=== PATIENT | female | born 1980 | race Caucasian/White ===

== ENCOUNTER 2024-01-29 15:46 | Emergency (ER) | payer OTHER, SELFPAY ==
[2024-01-29 15:59] VITALS: BP 149/97
[2024-01-29 16:37] VITALS: BMI 22.7
--- NOTE | 2024-01-29 16:40 | ED.GENMED ---
History of Present Illness
General
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
Source: patient
Exam Limitations: none
Time Seen by Provider: 01/29/24 16:39
Nursing documentation reviewed up to this point in time: agreed with
Travel History
Have you had any contact with someone who has COVID-19?: No
Do you have any symptoms of coronavirus? Fever > 100 degrees, chills, cough, shortness of breath, sore throat, loss of taste or smell, muscle aches, or headache?: No
History of Present Illness
History of Present Illness:
Patient is a 43-year-old female presenting for evaluation of heavy vaginal bleeding. Patient states that her menstrual cycle started approximately 6 days ago and was initially drosser than usual until this morning when the bleeding intensified.
She reports bright red blood and passing large clots. She reports going through about 1 super tampon and pad per hour. Patient also endorses significant pelvic cramping intermittent throughout the day. Denies any associated nausea, vomiting,
anorexia. Patient denies any dizziness, lightheadedness, fatigue, headache, shortness of breath.
Of note�patient does have a history of ovarian cysts and uterine fibroids. Patient was found to be severely anemic with a hemoglobin of around 7 this past summer, given iron infusion with prompt resolution. Patient had a Liletta IUD placed this
past fall to help control menstrual bleeding. She was seen by her EMERGENCY CARE TECH approximately 1.5 months ago for a IUD string check it was found to be in place.
Phy Exam
Physical Exam
Physical Exam:
Vitals: Patient's vital signs are stable
General: Patient is very well appearing, no acute distress
Skin: Warm and dry, no rashes or lesions
Head: Normocephalic, atraumatic
Eyes: Sclera nonicteric. EOMs intact. No nystagmus. Moist mucous membranes
Throat: Protecting airway
Neck: Normal ROM, no cervical spine tenderness, no meningismus
Cardiac: Regular rate and rhythm, no murmurs.
Pulm: Normal respiratory effort, no wheezes, rales, rhonchi heard on exam.
Abdomen: Abdomen soft with minimal tenderness in right lower quadrant and suprapubic region without rebound or guarding.
Pelvic: Bright red blood in vaginal vault without any visible clots, no visualized vaginal wall lacerations
Extremities: No evidence of cyanosis or edema. DP pulses palpable and equal bilaterally
Neuro: AAOx3. CN II-XII intact. No focal neurologic deficits.
Psychiatric: Normal affect.
Course
Orders/Labs/Results
Orders:
Orders
01/29/24 16:37
Type+Screen Urgent
Complete Blood Count/With Diff Urgent
Comprehensive Metabolic Panel Urgent
HCG, Serum Qualitative Screen Urgent
Comment: SERUM HCG QUALITATIVE ADDED ON BY FLOOR 4:50PM 01-29-24
01/29/24 16:41
Test Result ONCE
01/29/24 16:51
Add On- LAB Urgent
Tests Added?: Serum Hcg Qualitative
01/29/24 17:46
US Pelvis W Transvag Combined Urgent
Comment: has Liletta IUD
Reason For Exam: heavy bleeding, right pelvic pain, r/o torsion
Abnormal Lab Results
01/29/24
16:37
MCH 31.4 H pg
(27.0-31.0)
Absolute Lymphs (auto) 1.0 L 10^3/uL
(1.2-3.4)
Lymphocytes % 18.3 L %
(20.5-51.1)
BUN 19 H mg/dl
(7-17)
01/29/24 16:37
01/29/24 16:37
Vital Signs
Initial and Last Documented VS:
Initial Vital Signs
Temp Pulse Resp BP Pulse Ox
98.3 F 78 16 149/97 98
01/29/24 15:59 01/29/24 15:59 01/29/24 15:59 01/29/24 15:59 01/29/24 15:59
Last Documented Vital Signs
Temp Pulse Resp BP Pulse Ox
98.3 F 68 15 125/79 98
01/29/24 15:59 01/29/24 21:00 01/29/24 21:00 01/29/24 20:28 01/29/24 21:00
MDM/Problems Addressed
Differential Diagnosis Includes:
Not limited to: Menstrual bleeding, uterine fibroids, ovarian cyst, spontaneous , ectopic
MDM/Problems Addressed:
Patient is a 43 year old female with history uterine fibroids presenting with one day of heavy menstrual period with intermittent pelvic pain. Vitals stable. Exam as above. Will check labs, , pelvic US given pelvic discomfort. Patient
denies analgesia at this time.
Labs noted. Hgb stable at 13.3. negative. US pending. Anticipate discharge.
US shows uterine fibroids which are known to patient without any evidence of ovarian torsion. Suspect fibroids to likely be cause of increased menstrual bleeding. Repeat vitals have remained stable. Patient appears in no distress - fit for
discharge. She will f/u with OBGYN early next week. Return precautions discussed at length.
Chronic conditions affecting care:
N/A
Acute Exacerbation and/or Progression of Chronic Illness:
N/A
*Radiology
Radiology exam reviewed: radiology read reviewed
*Pulse Oximetry
Patient hypoxic: no
*EKG
Interpreted by ED Provider?: NA
*Grain Trader Interpretation
Rate: normal
Interpretation: normal
Heart Rate: 76
Rhythm: sinus
*Critical Care Note
Total Time (30-74mins, 75-104mins- exclusive of procedures): Not Applicable
ED Attending Note
-
Portions of this chart may have been created with voice recognition software.� Occasional wrong word or��sound alike� substitutions may have occurred due to the inherent limitations of voice recognition software.
Discharge Plan
Departure
Patient Disposition: Home (Routine Discharge)
Date of Disposition: 01/29/24
Time of Disposition: 21:48
Patient with high blood pressure during this ER visit?: No
Condition: Good
Covid-19: Not Applicable
Discharge Problem:
Vaginal bleeding
Instructions: Heavy Periods (DC), Heavy Periods ED
Prescriptions:
No Action
venlafaxine [Effexor] 100 mg Tablet
112.5 mg PO DAILY
Referrals:
Gabbi Tijerina MD [Active] - Next open appointment
Hema Shah MD [Family Provider] -
Activity Restrictions/Additional Instructions:
-Return to the emergency department with any chest pain, shortness of breath, dizziness/lightheadedness, fainting, severe fatigue, persistent heavy bleeding, severe abdominal pain, nausea/vomiting, worsening in current symptoms, or any other concerns
-You can take Motrin as needed for discomfort. It is important to stay well hydrated.
-As discussed - you should follow-up with your OBGYN early next week for further evaluation/management.
Interventions
Interventions:
*Risk Screen - Suicide Last Done: 01/29/24 16:37
*General Assessment Last Done: 01/29/24 16:37
*Neglect/Abuse Screening Last Done: 01/29/24 16:37
ED- Fall Risk Assessment Last Done: 01/29/24 16:37
*ED COVID-19 Vaccine History Last Done: 01/29/24 16:37
*Nursing Disposition Last Done: 01/29/24 21:53
ED-Female Genitourinary Assessment Last Done: 01/29/24 16:37
Discharge Date and Time
Discharge Date/Time: 01/29/24 21:54
Print Language: MICRONESIAN
[2024-01-29 17:02] LABS: % Basophils 1.1 % (0-2); % Eosinophils 2.3 % (0-6); % Immature Granulocytes 0.2 % (0-0.5); % Lymphocytes 18.3 % (20.5-51.1); % Monocytes 6.8 % (1.7-9.3); % Neutrophils 71.3 % (42.2-75.2); Absolute Basophils 0.1 10^3/uL (0-0.2); Absolute Eosinophils 0.1 10^3/uL (0-0.7); Absolute Monocytes 0.4 10^3/uL (0.1-0.6); Hematocrit 39.3 % (37.0-47.0); Hemoglobin 13.3 g/dL (12.0-16.0); Mean Corp Hgb Conc. 33.8 g/dL (33.0-37.0); Mean Corpuscular Hgb 31.4 pg (27.0-31.0); Mean Corpuscular Volume 92.9 fL (81.0-99.0); Mean Platelet Volume 9.9 fL (7.4-10.4); Nucleated Red Blood Cells % 0 %; Platelet Count 223 10^3/uL (130-400); Red Blood Cell Count 4.23 10^6/uL (4.20-5.40); Red Cell Dist. Width 12.3 % (11.5-14.5); White Blood Cell Count 5.6 10^3/uL (4.8-10.8)
[2024-01-29 17:20] LABS: ALT (SGPT) 14 U/L (0-35); AST (SGOT) 21 U/L (14-36); Albumin 4.4 g/dl (3.5-5.0); Alkaline Phosphatase 69 U/L (38-126); Blood Urea Nitrogen 19 mg/dl (7-17); Carbon Dioxide 26 mmol/L (22-30); Chloride 104 mmol/L (98-107); Estimated Creatinine Clearance 66 ml/min; Glucose 83 mg/dl (70-99); Potassium 4.3 mmol/L (3.5-5.1); Sodium 136 mmol/L (135-145); Total Bilirubin 0.4 mg/dl (0.2-1.3); Total Protein 6.7 g/dl (6.3-8.2); eGFR > 60.00
[2024-01-29 17:29] LABS: HCG, Serum Qualitative Screen Negative
[2024-01-29 18:39] VITALS: BP 138/94
[2024-01-29 20:28] VITALS: BP 125/79
--- NOTE | 2024-01-29 21:29 | EDRN ---
Pt's mother came to the charge desk wanting to know the results of her daughters ultrasound and when she would be discharged. Pt's mother informed that this RN would speak with provider in regards to results.Pt and Pt's mother informed that provider
will be in soon to discuss results. Pt's mother stated she was told for discharge and that she is tired of waiting, this RN said that she is currently noted marked for D/C but she could ask the provider when she comes in. Pt then waved this RN out
of room and stated she is annoyed at the wait for results and discharge.
== END 2024-01-29 21:54 | disposition home or self-care (01) ==
LOC: EMR 15:46
PROVIDERS: EMERGENCY PHYSICIAN Emergency Medicine; FAMILY PHYSICIAN Internal Medicine Geriatric Medicine
DX: N93.9 Abnormal uterine and vaginal bleeding, unspecified (principal); R10.2 Pelvic and perineal pain; N83.209 Unspecified ovarian cyst, unspecified side; D25.9 Leiomyoma of uterus, unspecified; J45.909 Unspecified asthma, uncomplicated; M41.9 Scoliosis, unspecified; Z97.5 Presence of (intrauterine) contraceptive device; Z86.16 Personal history of COVID-19; Z91.013 Allergy to seafood; Z88.2 Allergy status to sulfonamides; Z91.018 Allergy to other foods
CPT/HCPCS: 99284; 76830; 76856; 80053; 84703; 85025; 86850; 86900; 86901

== ENCOUNTER → 2024-03-17 13:59 | Outpatient (REF) | payer OTHER, SELFPAY ==
[2024-03-17 14:06] LABS: % Basophils 0.7 % (0-2); % Eosinophils 1.6 % (0-6); % Immature Granulocytes 0.2 % (0-0.5); % Lymphocytes 15.2 % (20.5-51.1); % Monocytes 7.6 % (1.7-9.3); % Neutrophils 74.7 % (42.2-75.2); Absolute Eosinophils 0.1 10^3/uL (0-0.7); Absolute Lymphocytes 0.9 10^3/uL (1.2-3.4); Absolute Monocytes 0.4 10^3/uL (0.1-0.6); Absolute Neutrophils 4.2 10^3/uL (1.4-6.5); Hematocrit 30.4 % (37.0-47.0); Hemoglobin 9.6 g/dL (12.0-16.0); Mean Corp Hgb Conc. 31.6 g/dL (33.0-37.0); Mean Corpuscular Hgb 26.6 pg (27.0-31.0); Mean Corpuscular Volume 84.2 fL (81.0-99.0); Mean Platelet Volume 9.5 fL (7.4-10.4); Platelet Count 325 10^3/uL (130-400); Red Blood Cell Count 3.61 10^6/uL (4.20-5.40); Red Cell Dist. Width 18.3 % (11.5-14.5); White Blood Cell Count 5.7 10^3/uL (4.8-10.8)
== END ==
LOC: OIDL 13:59
PROVIDERS: ATTENDING PHYSICIAN Registered Nurse
DX: D50.9 Iron deficiency anemia, unspecified (principal)
CPT/HCPCS: 85025

== ENCOUNTER → 2024-04-01 13:08 | Outpatient (REF) | payer OTHER, SELFPAY | LOC: WDC 13:08 | PROVIDERS: ATTENDING PHYSICIAN Nurse Practitioner Family | DX: Z12.31 Encounter for screening mammogram for malignant neoplasm of breast (principal) | CPT/HCPCS: 77063; 77067 ==

== ENCOUNTER → 2024-04-05 08:02 | Outpatient (REF) | payer OTHER, SELFPAY | LOC: RSP 08:02 | PROVIDERS: ATTENDING PHYSICIAN Nurse Practitioner Family; REFERRING PHYSICIAN Obstetrics & Gynecology | DX: J45.901 Unspecified asthma with (acute) exacerbation (principal) | CPT/HCPCS: 94727; 94729; 88738; 94060 ==

== ENCOUNTER 2024-04-08 06:26 | Day surgery (SDC) | payer OTHER, SELFPAY ==
[2024-03-29 08:17] VITALS: BMI 22.2
[2024-03-29 09:52] LABS: % Basophils 1.1 % (0-2); % Eosinophils 3.2 % (0-6); % Immature Granulocytes 0.2 % (0-0.5); % Lymphocytes 18.6 % (20.5-51.1); % Monocytes 7.9 % (1.7-9.3); Absolute Basophils 0.1 10^3/uL (0-0.2); Absolute Eosinophils 0.2 10^3/uL (0-0.7); Absolute Monocytes 0.4 10^3/uL (0.1-0.6); Absolute Neutrophils 3.7 10^3/uL (1.4-6.5); Hemoglobin 11.7 g/dL (12.0-16.0); Mean Corp Hgb Conc. 32.5 g/dL (33.0-37.0); Mean Corpuscular Hgb 27.9 pg (27.0-31.0); Mean Corpuscular Volume 85.7 fL (81.0-99.0); Mean Platelet Volume 10.1 fL (7.4-10.4); Nucleated Red Blood Cells % 0 %; Platelet Count 314 10^3/uL (130-400); Red Cell Dist. Width 22.1 % (11.5-14.5); White Blood Cell Count 5.3 10^3/uL (4.8-10.8)
[2024-03-29 10:21] LABS: Blood Urea Nitrogen 12 mg/dl (7-17); Calcium 9.1 mg/dl (8.4-10.2); Carbon Dioxide 23 mmol/L (22-30); Chloride 107 mmol/L (98-107); Estimated Creatinine Clearance 87 ml/min; Glucose 78 mg/dl (70-99); Potassium 4.2 mmol/L (3.5-5.1); Sodium 138 mmol/L (135-145); eGFR > 60.00
[2024-03-29 10:26] LABS: Beta HCG Quantitative < 2.39 mIU/ml
[2024-03-29 11:10] LABS: Anisocytosis 1+; Normal RBC Morphology No
[2024-03-29 11:11] LABS: Hypochromasia 1+; Ovalocytes Slight
[2024-04-08] VITALS (13 sets, daily range): BP systolic 119–146; BP diastolic 70–98; BMI 22.2; BMI 23.5
[2024-04-08] MEDS: TYLENOL 1000 MG PO (10:17)
[2024-04-08] MEDS: NORMOSOL-R 1000 IV ×2 (10:17→20:15)
--- NOTE | 2024-04-08 10:31 | W.SUR.PREOP ---
Pre-Operative Surgical Note
-
I have examined this patient prior to the performance of the scheduled procedure.
The patient's condition is unchanged from the time of the current History and
Physical and the patient is able to undergo the scheduled procedure.
No changes in H&P update today
--- NOTE | 2024-04-08 13:47 | W.IMMPOSTOP ---
Surgical Immed Post Op Note
-
Primary Surgeon: Bella Cruz DO
Photographer Apprentice Lithographic: NABEEL Beard
Pre-op Diagnosis: Menorrhagia, anemia, fibroid uterus
Post-op Diagnosis: same; endometriosis
Procedure Performed: RA TLH bilateral salpingectomy, fulgeration endometriosis
Anesthesia Type: general ET Dr. Sanon
Specimen / Cultures: uterus, cervix and fallopian tubes
Estimated Blood Loss: 10ml
IVF: 1200ml crystalloid
Urine output: 600ml clear yellow urine
Complications: none
Operative Findings: Enlarged fibroid uterus, sounded to 11 cm. Large right sided fibroid approx 5-6 cm bulging anteriorly and laterally.
Normal appearing tubes and left ovary. Right ovary with superficial 3mm endometriosis implant on surface and small 3mm endometriosis implant on left uterosacral ligament.
Counts correct times 2.
Stable to recovery.
[2024-04-08] MEDS: ZOFRAN 4 MG IV (15:22)
[2024-04-08] MEDS: COMPAZINE 5 MG IV (15:29)
[2024-04-08] MEDS: ROXICODONE 5 MG PO ×2 (17:13→23:27)
[2024-04-08] MEDS: TYLENOL 650 MG PO (18:26)
--- NOTE | 2024-04-08 19:58 | PTCARENOTE ---
Patient decided at 1900 that she wanted to be admitted. Dr. Cruz notified and admissions called. Room 2105 assigned. Attempted to call [facility] with report but RN unable to take report at this time. PACU notified and report given to Elissa MAURICIO.
Patient taken back to PACU with belongings.
[2024-04-08] MEDS: TORADOL 15 MG IV (20:15)
[2024-04-08] MEDS: MORPHINE SULFATE 2 MG IV (20:15)
--- NOTE | 2024-04-08 20:29 | SUR.PHASEI ---
Received pt back from [facility], being admitted, [facility] RN called, report given. Pt having pain. Orders transferred. Pharmacy called. Scheduled Toradol given as well as 2 mg of Morphine. Pt updated with plan of care. This RN will transport to room
--- NOTE | 2024-04-08 20:35 | PTCARENOTE ---
Received patient from PACU @20:35, IVF infusing, patient ambulated to balanced standing scale at bedside, ambulated to bathroom, france pad in place.
[2024-04-09] MEDS: TORADOL 15 MG IV ×2 (01:28→08:38)
[2024-04-09 03:59] VITALS: BP 119/72
[2024-04-09] MEDS: NORMOSOL-R IV (05:20)
[2024-04-09 06:33] LABS: % Basophils 0.2 % (0-2); % Immature Granulocytes 0.2 % (0-0.5); % Monocytes 7.8 % (1.7-9.3); % Neutrophils 83.8 % (42.2-75.2); Absolute Neutrophils 10.5 10^3/uL (1.4-6.5); Hematocrit 36.5 % (37.0-47.0); Hemoglobin 11.9 g/dL (12.0-16.0); Mean Corp Hgb Conc. 32.6 g/dL (33.0-37.0); Mean Platelet Volume 10.2 fL (7.4-10.4); Nucleated Red Blood Cells % 0 %; Platelet Count 257 10^3/uL (130-400); White Blood Cell Count 12.5 10^3/uL (4.8-10.8)
[2024-04-09 07:02] LABS: Blood Urea Nitrogen 7 mg/dl (7-17); Carbon Dioxide 26 mmol/L (22-30); Chloride 106 mmol/L (98-107); Estimated Creatinine Clearance 81 ml/min; Potassium 4.6 mmol/L (3.5-5.1); Sodium 137 mmol/L (135-145)
[2024-04-09 07:15] VITALS: BP 127/77
--- NOTE | 2024-04-09 10:38 | CM ---
Initial Assessment completed
Pharmacy verified: [facility], [address], [place]
Patient lives in a townhouse; has a 20 yr old son who lives with her; 3 steps to enter; 13 steps between floors; powder room on the main floor
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
DME: Nebulizer (uses PRN)
SNF/Home Health utilization history: none
Transportation: parent will provide ride home
Plan: discharge to home when stable; no needs anticipated. Plans to stay at parent's home for a few days when post discharge
--- NOTE | 2024-04-09 10:44 | PTCARENOTE ---
Pt with new onset facial swelling. Left > right. No crepitus palpated. Pt with no complaints with breathing or swallowing. Pt instructed to inform RN with any change of symptoms. Dr. Cruz notified. Care ongoing at this time.
[2024-04-09 11:19] VITALS: BP 134/77
--- NOTE | 2024-04-09 12:17 | W.DS.TRANS ---
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
-
Discharge Instructions:
Sleep Apnea Risk Low
Discharge Diagnosis/Procedures menorrhagia, anemia, fibroids, endometriosis;
Robotic laparoscopic total hysterectomy
bilateral salpingectomy, fulgeration
endometriosis
Diet Regular
Activity No strenuous activity
Driving Restrictions No driving for 1 week
Bathing Restrictions OK to Shower
Instructions:
Stand-Alone Forms:
Changes to Home Medications: No
Discharge Medications:
DC Medications w/original date entered in [facility]
acetaminophen 325 mg capsule (Tylenol) 650 mg PO PRN PRN headache 04/07/24
albuterol sulfate 90 mcg/actuation aerosol inhaler 1 inh inhalation PRN PRN asthma 04/07/24
wzoqnzm-myswmdddmshnr-chqclptb 250 mg-250 mg-65 mg tablet (Excedrin Migraine) 2 tab PO Q6H PRN migraine 04/07/24
venlafaxine 37.5 mg tablet 37.5 mg PO DAILY Mental Health/Anxiety 04/07/24
venlafaxine 75 mg tablet 75 mg PO DAILY Mental Health/Anxiety 04/07/24
cetirizine 10 mg tablet (Zyrtec) 10 mg PO DAILY PRN allergic reactions 04/08/24
ibuprofen 600 mg tablet 600 mg PO Q6H PRN mild pain #30 tabs 04/08/24
oxycodone 5 mg tablet 5 mg PO Q6H PRN severe pain #14 tabs 04/08/24
oxycodone 5 mg tablet 5 mg PO Q6H PRN severe pain #14 tabs 04/08/24
Home Medication Changes
Pending Results: Yes
Additional Pending Results:
surgical path
Total time spent discharging patient (in min): 30
--- NOTE | 2024-04-09 12:19 | W.DS.TRANS ---
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
-
Discharge Instructions:
Sleep Apnea Risk Low
Discharge Diagnosis/Procedures menorrhagia, anemia, fibroids, endometriosis;
Robotic laparoscopic total hysterectomy
bilateral salpingectomy, fulgeration
endometriosis
Diet Regular
Activity No strenuous activity
Driving Restrictions No driving for 1 week
Bathing Restrictions OK to Shower
Instructions:
Stand-Alone Forms:
Changes to Home Medications: No
Discharge Medications:
DC Medications w/original date entered in [facility]
acetaminophen 325 mg capsule (Tylenol) 650 mg PO PRN PRN headache 04/07/24
albuterol sulfate 90 mcg/actuation aerosol inhaler 1 inh inhalation PRN PRN asthma 04/07/24
sinypvb-lweqhperutrjj-badrisxe 250 mg-250 mg-65 mg tablet (Excedrin Migraine) 2 tab PO Q6H PRN migraine 04/07/24
venlafaxine 37.5 mg tablet 37.5 mg PO DAILY Mental Health/Anxiety 04/07/24
venlafaxine 75 mg tablet 75 mg PO DAILY Mental Health/Anxiety 04/07/24
cetirizine 10 mg tablet (Zyrtec) 10 mg PO DAILY PRN allergic reactions 04/08/24
ibuprofen 600 mg tablet 600 mg PO Q6H PRN mild pain #30 tabs 04/08/24
oxycodone 5 mg tablet 5 mg PO Q6H PRN severe pain #14 tabs 04/08/24
oxycodone 5 mg tablet 5 mg PO Q6H PRN severe pain #14 tabs 04/08/24
Home Medication Changes
Pending Results: Yes
Additional Pending Results:
surgical path
Total time spent discharging patient (in min): 30
--- NOTE | 2024-04-09 12:23 | CM ---
Patient has been medically cleared for discharge to home with no additional skilled services. Patient has arranged for transport home.
== END 2024-04-09 12:59 | disposition home or self-care (01) ==
LOC: SDS 06:26
PROVIDERS: ATTENDING PHYSICIAN Obstetrics & Gynecology; FAMILY PHYSICIAN Nurse Practitioner Primary Care
DX: D25.9 Leiomyoma of uterus, unspecified (principal); N84.0 Polyp of corpus uteri; N80.392 Deep endometriosis of the pelvic peritoneum, other specified sites; N92.0 Excessive and frequent menstruation with regular cycle; D50.0 Iron deficiency anemia secondary to blood loss (chronic)
CPT/HCPCS: 58571; 88307; 36415; 80048; 80051; 82565; 84520; 84702; 85025; 86850; 86900; 86901